=== PATIENT | male | born 1970 | race Caucasian/White ===

== ENCOUNTER 2019-04-13 10:59 | Emergency (ER) | payer OTHER ==
--- NOTE | 2019-04-13 12:55 | UC ---
Knee Pain HPI - HPI Summary HPI Summary: 49-year-old male presents with 2 day history of left knee pain and swelling. No known injury. States has had a dislocation of this knee in the past years ago. States pain and swelling is located to the medial aspect of the knee. Pain is worse with movement. Feels he is unable to fully extend or flex the knee due to the pain and swelling. He is able to walk and bear weight. Denies fever, chills, erythema, increased warmth, calf pain or swelling, chest pain, shortness of breath, numbness, or tingling. - History of Current Complaint Stated Complaint: lt knee injury Time Seen by Provider: 04/13/19 12:42 Hx Obtained From: Patient - Allergies/Home Medications Allergies/Adverse Reactions: Allergies Allergy/AdvReac Type Severity Reaction Status Date / Time No Known Allergies Allergy Verified 04/13/19 12:48 Home Medications: Home Medications Ibuprofen TAB* [Motrin TAB* 800 MG] 800 mg PO Q6H PRN 04/13/19 [History Confirmed 04/13/19] PMH/Surg Hx/FS Hx/Imm Hx Previously Healthy: Yes - Denies significant PMH - Family History Known Family History: Positive: Non-Contributory - Social History Occupation: Employed Full-time Lives: With Family Review of Systems All Other Systems Reviewed And Are Negative: Yes Constitutional: Negative: Fever, Chills Respiratory: Positive: Negative Cardiovascular: Positive: Negative Gastrointestinal: Positive: Negative Genitourinary: Positive: Negative Motor: Negative: Weakness Neurovascular: Negative: Decreased Sensation Musculoskeletal: Positive: Arthralgia - See HPI, Edema Neurological: Positive: Negative Physical Exam - Summary Physical Exam Summary: GENERAL APPEARANCE: Well developed, well nourished, alert and cooperative, and appears to be in no acute distress. CARDIAC: Normal S1 and S2. No S3, S4 or murmurs. Rhythm is regular. There is no peripheral edema, cyanosis or pallor. Extremities are warm and well perfused. Capillary refill is less than 2 seconds. Peripheral pulses intact. LUNGS: Clear to auscultation without rales, rhonchi, wheezing or diminished breath sounds. ABDOMEN: Positive bowel sounds. Soft, nondistended, nontender. No guarding or rebound. No masses or hepatosplenomegally. MUSKULOSKELETAL: Normal muscular development. Limping gait. EXTREMITIES: Tenderness with mild-moderate edema to the medial left knee. No erythema, ecchymosis, or increased warmth noted. Flexion and extension of knee mildly decreased. Circulation and sensation intact. SKIN: Skin normal color, texture and turgor with no lesions or eruptions. Triage Information Reviewed: Yes Vital Signs Reviewed: Yes Diagnostics - Radiology No standard instances Radiology Interpretation Completed By: Radiologist Summary of Radiographic Findings: Order Information: KNEE LEFT 4+ VWS. INDICATION: 2 days of medial left knee pain. COMPARISON: None. TECHNIQUE: 4 view radiograph of the left knee. FINDINGS: The visualized bones are well- corticated and properly aligned. The joint spaces are properly maintained. There is no radiographic evidence of joint effusion. There is no acute fracture , dislocation or other focal bony abnormality. IMPRESSION: Normal knee radiograph. Knee Pain Course/Dx - Course Course Of Treatment: 49-year-old male presents with 2 day history of left knee pain and swelling. No known injury. States has had a dislocation of this knee in the past years ago. States pain and swelling is located to the medial aspect of the knee. Pain is worse with movement. Feels he is unable to fully extend or flex the knee due to the pain and swelling. He is able to walk and bear weight. Denies fever, chills, erythema, increased warmth, calf pain or swelling, chest pain, shortness of breath, numbness, or tingling. Afebrile. Hypertensive otherwise vital signs stable. Patient hand tenderness to the medial aspect of the left knee with some mild to moderate edema. No erythema, ecchymosis, or increased warmth was appreciated. Patient was able to walk and bear weight although had a limping gait. There was some mild limitation to both flexion and extension due to the pain and edema. Circulation and sensation were intact. X-ray showed no acute osseous pathology. Reviewed results with the patient. Recommending conservative treatment for acute knee pain including prescription for naproxen 500 mg every 12 hours as needed for pain and RICE. He is to follow -up with orthopedic surgery in 7 days if no improvement in symptoms. Anticipatory guidance and warning symptoms were reviewed with the patient. Verbalizes understanding and agrees with plan of care. - Differential Dx/Diagnosis Differential Diagnosis/HQI/PQRI: Contusion, Fracture (Closed), Internal Derangement Of Knee, Infection, Phlebitis, Sprain, Strain, Tendonitis Provider Diagnosis: Acute pain of left knee Discharge ED - Sign-Out/Discharge Documenting (check all that apply): Patient Departure All imaging exams completed and their final reports reviewed: Yes - Discharge Plan Condition: Stable Disposition: HOME Prescriptions: Naproxen [Naproxen 500 mg tab] 500 mg PO Q12HR #30 tablet Patient Education Materials: Knee Pain (ED) Referrals: RALPH JerezTristian [Primary Care Provider] - Garrick Paez MD [Medical Doctor] - 7 Days (If no improvement. Call for appointment.) Additional Instructions: The x-ray performed in the clinic today showed no evidence of a fracture. Rest the knee as much as possible. You may continue to walk and bear weight as tolerated. Use an Joao wrap or compression sleeve to help manage the swelling. Apply ice to the affected area for 15-20 minutes at least 4 times a day to help with the pain and swelling. Elevate the leg to help reduce swelling. Take naproxen 500 mg 1 tablet every 12 hours with food for the next 5-7 days then may take every 12 hours as needed for pain. Follow up with orthopedic surgery in 5-7 days if symptoms do not improve. Seek immediate medical attention if you have severe pain not managed with pain medication, you have pain or swelling of the calf, chest pain, shortness of breath, you are unable to walk or bear any weight, develop numbness or tingling in the eye, foot, or toes, or have any worsening of symptoms. - Billing Disposition and Condition Condition: STABLE Disposition: Home
[2019-04-13 12:56] VITALS: BP 146/102
== END 2019-04-13 14:17 | disposition home or self-care (01) ==
LOC: UCCORT 10:59
DX: M25.562 Pain in left knee (principal); M79.89 Other specified soft tissue disorders
CPT/HCPCS: 99202; G0463